=== PATIENT | female | born 1930 | race Caucasian/White ===

== ENCOUNTER 2017-03-12 01:32 | Observation (INO) ==
--- NOTE | 2017-03-12 01:40 | Emergency Department Note ---
Disposition Clinical Impression: Chest pain, Atrial fibrillation Disposition: Admitted As Inpatient Condition: Fair Time of Disposition: 04:07 ([facility] formerly [facility]) Chest Pain HPI - General Chief Complaint: ED Chest Pain Stated Complaint: afib Time Seen by Provider: 03/12/17 01:48 Source: patient Mode of arrival: ambulatory Limitations: no limitations Vital Signs Reviewed: Yes Nursing Notes Reviewed: Yes - History of Present Illness Pt complaint: chest pain, other (palpitations) Onset (ago): hour(s) Duration: constant Onset: during rest Pain Location: substernal Severity: moderate Severity scale (1-10): 4 Quality: tightness Pain Radiation: none Improves with: nothing Worsens with: exertion Context: other (last episode 4 years ago) Associated symptoms: Reports: diaphoresis, dyspnea, palpitations. Denies: nausea, vomiting, sense of impending doom, syncope, fever, cough, leg swelling Treatments prior to arrival chest pain: aspirin, nitroglycerin - Related Data Home Medications Medication Instructions Recorded Confirmed Aspirin 81 mg PO DAILY 04/13/15 11/08/15 Dronendrone [Multaq] 400 mg PO BID 04/13/15 03/12/17 Simvastatin [Zocor] 10 mg PO DAILY 04/13/15 03/12/17 Amlodipine [Norvasc] 2.5 mg PO DAILY 04/15/15 03/12/17 Magnesium Citrate [Citroma] 1 bottle PO DAILY PRN 04/15/15 04/15/15 Allergies Allergy/AdvReac Type Severity Reaction Status Date / Time chlorpheniramine Allergy Hives Verified 01/04/16 13:20 diphenhydramine AdvReac Itching Verified 01/04/16 13:20 Review of Systems: As Per HPI Constitutional: Reports: weakness. Denies: fever, chills Eyes: Denies: eye pain, eye discharge ENT ED: Denies: ear pain, throat pain, congestion, dysphagia Cardiovascular: Reports: chest pain, palpitations, dyspnea on exertion. Denies : orthopnea, edema, syncope, paroxysmal nocturnal dyspnea Respiratory: Reports: dyspnea. Denies: cough, wheezes Gastrointestinal: Denies: abdominal pain, nausea, vomiting Genitourinary: Denies: urgency, dysuria, frequency Musculoskeletal: Denies: back pain, neck pain Integumentary: Denies: rash, abrasion, lesions Neurological: Denies: headache, weakness Psychiatric: Denies: anxiety, depression Endocrine: Denies: fatigue Hematological/Lymphatic: Denies: easy bleeding, easy bruising Allergic/Immunologic: Denies: facial swelling Chest Pain PMH - Past Medical History Medical history: Reports: atrial fibrillation, cancer, hyperlipidemia, hypertension Surgical history: Reports: appendectomy, cancer surgery, cholecystectomy, hysterectomy Psychiatric history: Reports: no psych history FILE DRAWER FINISHER history: Reports: no FILE DRAWER FINISHER history - Social History Smoking Status: Never smoker Alcohol use: Reports: none Drug use: Reports: none Physical Exam - General Limitations: no limitations General appearance: alert, anxious, in distress - Head Head exam: atraumatic, normocephalic, normal inspection - Eye Eye exam: Present: normal appearance, PERRL, EOMI - ENT ENT exam: normal oropharynx, mucous membranes moist, TM's normal bilaterally, normal external ear exam - Neck Neck exam: Present: normal inspection, full ROM, trachea midline - Chest Chest inspection: Present: normal inspection, symmetric chest wall rise - Respiratory Respiratory exam: Present: normal lung sounds bilaterally - Cardiovascular Cardiovascular exam: Present: tachycardia, irregular rhythm, normal heart sounds - Abdominal Exam Abdominal exam: Present: soft, Non-Tender, normal bowel sounds. Absent: mass, pulsatile mass - Extremities Exam Extremities exam: Present: normal inspection, full ROM, normal capillary refill. Absent: tenderness, pedal edema, joint swelling, calf tenderness - Expanded Lower Extremity Exam Neurovascular/Tendon exam: Present: normal capillary refill, normal fine/light touch Gait: observed and normal - Back Exam Back exam: Present: normal inspection, full ROM. Absent: muscle spasm - Neurological Exam Neurological exam: Present: alert, oriented X3, CN II-XII intact, normal gait - Psychiatric Psychiatric exam: Present: normal affect, normal mood - Skin Skin exam: Present: warm, dry, intact, normal color Course Course Narrative: Patient was seen and examined patient was given 20 mg Cardizem jugular from 130s to 140s down to 70 she is in sinus arrhythmia still with this controlled atrial fibrillation distressed elderly patient be monitored overnight he has been 4 years since her last episode transferred to [facility] stable Vital Signs Temperature 97.4 F L 03/12/17 01:33 Pulse Rate 116 03/12/17 01:33 Respiratory Rate 19 03/12/17 01:33 Blood Pressure 134/87 03/12/17 01:33 O2 Sat by Pulse Oximetry 94 03/12/17 01:33 Temperature 97.4 F L 03/12/17 01:33 Pulse Rate 85 03/12/17 02:42 Respiratory Rate 13 03/12/17 03:46 Blood Pressure 99/64 03/12/17 03:46 O2 Sat by Pulse Oximetry 91 03/12/17 02:42 Oxygen Delivery Oxygen Delivery Room Air Chest Pain - MDM Narrative Medical decision making narrative: Atrial fib with RVR atrial flutter with controlled response atrial fib slowed response - Differential Diagnosis Likely: unstable angina pectoris, atypical chest pain, chest pain - Medical Records Medical records reviewed: Yes I reviewed the patient's medical records. - Lab Data Lab results reviewed: Yes I reviewed the patient's lab results. Result diagrams: 03/12/17 02:01 03/12/17 02:01 Lab Results 03/12/17 03/12/17 03/12/17 Range/Units 02:01 02:01 02:01 WBC 4.1 L (4.3-11.1) K/mcL RBC 4.24 (3.82-4.97) M/mcL Hgb 14.0 (11.5-15.4) g/dL Hct 40.3 (35.3-44.9) % MCV 95.0 (83.0-100.0) fL MCH 33.0 (28.0-33.3) pg MCHC 34.7 (31.6-35.5) g/dL RDW 12.8 (11.5-14.5) % Plt Count 192 (140-400) K/mcL MPV 9.3 L (9.4-12.4) fL Immature Gran % 0.2 (0-4) % Seg Neutrophils % 41.9 % Lymphocytes % 40.6 % Monocytes % 11.9 % Eosinophils % 4.4 % Basophils % 1.0 % Neutrophils # 1.7 (1.6-8.9) K/mcL Lymphocytes # 1.7 (0.6-4.6) K/mcL Monocytes # 0.5 (0.0-1.3) K/mcL Eosinophils # 0.2 (0.0-0.6) K/mcL Basophils # 0.0 (0.0-0.2) K/mcL PT 10.7 (9.4-12.1) Seconds INR 1.0 APTT 22.0 L (26.0-36.0) Seconds Sodium 141 (136-145) mEq/L Potassium 3.5 (3.5-4.5) mEq/L Chloride 107 (98-109) mEq/L Carbon Dioxide 21 (19-29) mEq/L BUN 22 H (7-20) mg/dL Creatinine 1.10 (0.57-1.11) mg/dL Est GFR ( Amer) 57 L (> 60) Est GFR (Non-Af Amer) 47 L (> 60) BUN/Creatinine Ratio 20 (6-26) Glucose 136 H (70-99) mg/dL Calculated Osmolality 297 (280-300) Calcium 9.1 (8.6-10.8) mg/dL Magnesium 2.4 (1.6-2.6) mg/dL Troponin I (0-0.03) ng/mL B-Natriuretic Peptide (0-100) pg/mL 03/12/17 03/12/17 Range/Units 02:01 02:01 WBC (4.3-11.1) K/mcL RBC (3.82-4.97) M/mcL Hgb (11.5-15.4) g/dL Hct (35.3-44.9) % MCV (83.0-100.0) fL MCH (28.0-33.3) pg MCHC (31.6-35.5) g/dL RDW (11.5-14.5) % Plt Count (140-400) K/mcL MPV (9.4-12.4) fL Immature Gran % (0-4) % Seg Neutrophils % % Lymphocytes % % Monocytes % % Eosinophils % % Basophils % % Neutrophils # (1.6-8.9) K/mcL Lymphocytes # (0.6-4.6) K/mcL Monocytes # (0.0-1.3) K/mcL Eosinophils # (0.0-0.6) K/mcL Basophils # (0.0-0.2) K/mcL PT (9.4-12.1) Seconds INR APTT (26.0-36.0) Seconds Sodium (136-145) mEq/L Potassium (3.5-4.5) mEq/L Chloride (98-109) mEq/L Carbon Dioxide (19-29) mEq/L BUN (7-20) mg/dL Creatinine (0.57-1.11) mg/dL Est GFR ( Amer) (> 60) Est GFR (Non-Af Amer) (> 60) BUN/Creatinine Ratio (6-26) Glucose (70-99) mg/dL Calculated Osmolality (280-300) Calcium (8.6-10.8) mg/dL Magnesium (1.6-2.6) mg/dL Troponin I 0.00 (0-0.03) ng/mL B-Natriuretic Peptide 245 H (0-100) pg/mL - Radiology Data Radiology results reviewed: Yes I reviewed the patient's radiology results. ITS Impressions Chest X-Ray 03/12/17 01:37 IMPRESSION: No acute cardiopulmonary disease. D/ / Reji Mcgee MD / Reji Mcgee MD Interpreting Provider: Reji Mcgee MD - EKG Data EKG attestation: Yes I reviewed and interpreted this EKG. EKG results narrative: H A. fib with RVR nonspecific T-wave changes rate 130 OK QRS 86 QT 318 axis XIV Heart Score - Score History: Moderately Suspicious EKG: Non Specific repolarisation Disturbance Age: Greater than 65 Risk Factors: Equal/Greater than 3 risk factor or history of atherosclerotic disease Troponin: Less than normal limit HEART Score Total: 6 Critical Care Time Critical Care Time: Yes Total Critical Care Time: 35 Attestation: Critical care performed: Atrial fib with RVR 35 minutes getting the rhythm under control getting her stabilized from the fast irregular rhythm to a controlled rhythm medication that there is not any underlying congestive heart failure hypertensive issues or any evidence of a myocardial infarction with the results have not been obtained admitted search Dr. Scott observation status patient agreeable Time is exclusive of separately billable procedures. Time includes: direct patient care, patient reassessment, coordination of patient care, interpretation of data (laboratory data, radiology data, and respiratory data), review of patient's medical records, medical consultation and documentation of patient care. Procedures included in critical care time: Procedures excluded from critical care time:
[2017-03-12] MEDS ORDERED: 0.9 % Sodium Chloride 1,000 ML IVC SCH ×3 (01:45→04:31)
[2017-03-12 02:07] LABS: Eosinophils # 0.2 K/mcL (0.0-0.6); Eosinophils % 4.4 %; Hematocrit 40.3 % (35.3-44.9); Immature Granulocytes % 0.2 % (0-4); Lymphocytes # 1.7 K/mcL (0.6-4.6); Lymphocytes % 40.6 %; Mean Corpuscular HGB Conc 34.7 g/dL (31.6-35.5); Mean Platelet Volume 9.3 fL (9.4-12.4); Monocytes # 0.5 K/mcL (0.0-1.3); Monocytes % 11.9 %; Neutrophils # 1.7 K/mcL (1.6-8.9); Platelet Count 192 K/mcL (140-400); Red Blood Count 4.24 M/mcL (3.82-4.97); Red Cell Distribution Width 12.8 % (11.5-14.5); Segmented Neutrophils % 41.9 %
[2017-03-12 02:15] LABS: Prothrombin Time 10.7 Seconds (9.4-12.1)
[2017-03-12 02:25] LABS: Calcium 9.1 mg/dL (8.6-10.8); Magnesium 2.4 mg/dL (1.6-2.6); Potassium 3.5 mEq/L (3.5-4.5)
[2017-03-12] MEDS ORDERED: *HR* Heparin 5,000 UNIT/ML VIAL IVP ONE (04:31)
[2017-03-12] MEDS ORDERED: Heparin 25,000 UNIT/500 ML D5W 25,000 UNIT/500 ML MLS IVC SCH (04:31)
[2017-03-12] MEDS ORDERED: Naloxone 0.4 MG/ML INJ IVP PRN (04:31)
[2017-03-12] MEDS ORDERED: *HR* Heparin 5,000 UNIT/ML VIAL IVP PRN ×2 (04:31)
[2017-03-12] MEDS ORDERED: Aspirin 81 MG TAB.CHEW PO SCH (09:00)
[2017-03-12] MEDS ORDERED: amLODIPine 5 MG TABLET PO SCH (09:00)
[2017-03-12] MEDS: Aspirin 81 MG TAB.CHEW PO SCH (09:52)
--- NOTE | 2017-03-12 10:47 | Internal Med History&Physical ---
Date of Encounter: 03/12/17 Time of Encounter: 10:15 Assessment and Plan (1) Atrial fibrillation Current visit: Yes Status: Acute She has now converted back to normal sinus rhythm. I will change her from low- dose amlodipine to low-dose Toprol to maintain NSR. Continue Multaq. I discussed with her about possible use of an OAC. She will discuss this further with her PCP and/or wash box operator. Qualifiers: Atrial fibrillation type: paroxysmal Qualified Code(s): I48.0 - Paroxysmal atrial fibrillation (2) Hypertension Current visit: No Status: Chronic We will change from amlodipine to Toprol as per above. Qualifiers: Hypertension type: essential hypertension Qualified Code(s): I10 - Essential (primary) hypertension Internal Medicine - H&P: HPI Chief complaint: AF with RVR Admitted From: Home Plans for Post Hospital Care: Home History of present illness: Ms. Adhikari is a 86 year old female who came to emergency room stating she had sensation of tachycardia onset approximately 11:30 PM while at leisure. She felt she likely had AF with RVR. She reports not feeling well over the previous 6 hours but did not check her pulse. She was evaluated in emergency room and found have AF with RVR with ventricular rate of 130/m. She was admitted to [facility] floor for ongoing care needs. She was diagnosed with AF originally 2005 but has been maintained in normal sinus rhythm on Rythmol. She has history of hypertension but denies [place] heart failure angina DVT or pulmonary embolus She thinks she had a stress test and heart cath approximately 1999 which were unremarkable. She feels back to her baseline now. She denies any chest pain last evening. Past Med Surg Social Fam HX - Past Medical History Medical history: atrial fibrillation, cancer, hyperlipidemia, hypertension Psychiatric history: no psych history - Past Surgical History Surgical History: appendectomy, cancer surgery, cholecystectomy, hysterectomy - Social History Smoking Status: Never smoker Smokeless Tobacco Status: No Alcohol use: none Drug use: none Internal Medicine - H&P: Meds Aspirin 81 mg PO DAILY 04/13/15 [History] Dronendrone [Multaq] 400 mg PO BID 04/13/15 [History] Simvastatin [Zocor] 10 mg PO DAILY 04/13/15 [History] Amlodipine [Norvasc] 2.5 mg PO DAILY 04/15/15 [History] Magnesium Citrate [Citroma] 1 bottle PO DAILY PRN 04/15/15 [History] 3 Allergy/AdvReac Type Severity Reaction Status Date / Time chlorpheniramine Allergy Hives Verified 01/04/16 13:20 diphenhydramine AdvReac Itching Verified 01/04/16 13:20 All Systems PM: A 10-system review of systems was performed and is negative for pertinent findings except as documented above in the HPI. Review of systems: Review of systems from her November 2015 [facility] hospitalization were reviewed and revised as below. Gen.: Her weight has been stable at approximately 60 kg since November 2015 hospitalization Cardiovascular: As per history of present illness Respiratory: She is a lifelong nonsmoker and has no known chronic lung disease GI: She has had cholecystectomy but denies disorders of her liver or exocrine pancreas. She had diverticulitis with hospitalizations in 2014 and 2015. She claims colonoscopy 2015 showed no significant abnormalities. : No history of hematuria dysuria or kidney stones. 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 She has hyperlipidemia but no known thyroid disease. Hematology/oncology: No history of blood disorders or anemia. She had right breast CA diagnosed 2009 with lumpectomy followed by XRT. She declined Arimidex. 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 Psychiatric: She denies anxiety depression or other mental health issues Musk skeletal: She denies arthritis gout or osteoporosis. - Constitutional Vitals: Temp Pulse Resp BP Pulse Ox 98.4 F 61 18 116/52 94 03/12/17 10:30 03/12/17 10:30 03/12/17 10:30 03/12/17 10:30 03/12/17 10:30 Exam: Gen.: She is a well-developed well-nourished female who appears in no acute distress at present time. HEENT: Head is atraumatic and normocephalic. Eyes: EOMI. There is no scleral icterus. Her gaze appears slightly disconjugate. Mouth: Mucosa is moist Neck: Supple and nontender. There is no thyromegaly or adenopathy noted. Heart: Regular without murmurs gallops or ectopics Lungs: No wheezes or crackles are heard. Abdomen: Soft and nontender. No masses or guarding are noted. Extremities: There is no cyanosis edema or clubbing noted. Dorsalis pedis and posterior tibial pulses are trace to 1+ palpable bilaterally. Neurologic: Mental status: She is talkative and a good historian. Cranial nerves: Smile is symmetric. Forehead wrinkles bilaterally. Tongue protrudes midline. EOMI. Motor: There is no pronator drift. Cerebellar: Fair to nose intact bilaterally. Skin: Warm and dry Internal Med - H&P Results - Labs CBC & Chem 7: 03/12/17 02:01 03/12/17 02:01 Labs: Cardiac Enzymes 03/12/17 Range/Units 07:27 Troponin I 0.04 H* (0-0.03) ng/mL
[2017-03-12] MEDS: Metoprolol XL (24 HR) Succ 25 MG TAB.ER.24H PO SCH (16:10)
[2017-03-13 06:27] VITALS: BP 108/61
[2017-03-13] MEDS: Aspirin 81 MG TAB.CHEW PO SCH (07:29)
[2017-03-13] MEDS: Metoprolol XL (24 HR) Succ 25 MG TAB.ER.24H PO SCH (07:30)
--- NOTE | 2017-03-13 08:37 | Discharge Summary ---
Date of Encounter: 03/13/17 Time of Encounter: 08:30 - Discharge Diagnosis (1) Atrial fibrillation Priority: Primary Status: Acute Qualifiers: Atrial fibrillation type: paroxysmal Qualified Code(s): I48.0 - Paroxysmal atrial fibrillation (2) Hypertension Priority: Secondary Status: Chronic Qualifiers: Hypertension type: essential hypertension Qualified Code(s): I10 - Essential (primary) hypertension - Discharge Medications Prescriptions: Metoprolol Succinate 12.5 mg PO DAILY #15 tab.er.24h Home Medications: Aspirin 81 mg PO DAILY 04/13/15 [History] Dronendrone [Multaq] 400 mg PO BID 04/13/15 [History] Simvastatin [Zocor] 10 mg PO DAILY 04/13/15 [History] Magnesium Citrate [Citroma] 1 bottle PO DAILY PRN 04/15/15 [History] Metoprolol Succinate 12.5 mg PO DAILY #15 tab.er.24h 03/13/17 [Rx] Allergies/Adverse Reactions: 3 Allergy/AdvReac Type Severity Reaction Status Date / Time chlorpheniramine Allergy Hives Verified 01/04/16 13:20 diphenhydramine AdvReac Itching Verified 01/04/16 13:20 Date of admission: 03/12/17 04:00 Primary care physician: Daren Cox DO - Patient Status Disposition: Home, Self-Care Condition: Fair Functional capacity at discharge: independent ambulation Overall status at discharge: patient is progressing back to baseline - Discharge Instructions Follow Up With: Daren Cox DO [Primary Care Provider] - Maldonado Nascimento MD [Partnered Physician] - 1 week - Diet and Activity Activity: resume usual activities as tolerated Diet: advance to your usual diet Hospital course: Ms. Adhikari is a 86 year old female who came to emergency room stating she had sensation of tachycardia onset approximately 11:30 PM while at leisure. She felt she likely had AF with RVR. She reports not feeling well over the previous 6 hours but did not check her pulse. She was evaluated in emergency room and found have AF with RVR with ventricular rate of 130/m. She was admitted to [facility] for ongoing care needs. Initial orders were written by the emergency room physician. I saw her on March 12 and performed the history and physical. She converted normal sinus rhythm by the time I saw her. I discontinued amlodipine and placed her on metoprolol XL to maintain NSR. Her other home medications remained unchanged. 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 There were no new problems and on March 13 she was stable for discharge home. She will follow with her PCP Dr. Daren Cox within 1 week. - Time Spent with Patient Total time spent providing and/or coordinating discharge services: - Constitutional Vitals: Temp Pulse Resp BP Pulse Ox 97.3 F L 70 18 108/61 95 03/13/17 06:24 03/13/17 06:24 03/13/17 06:24 03/13/17 06:24 03/13/17 06:24
--- NOTE | 2017-03-14 16:33 | Electrocardiograph Report ---
[address] [address] Test Date: 2017-03-12 Pat Name: Rama Adhikari Department: [id number] Room: [facility] Gender: F Decator Operator: Олег : 1930 Requested By: Dorita Hernandez Order Number: [id number] Reading MD: Jannie Cutler Measurements Intervals Dewitt Rate: 130 P: NM: 0 QRS: 14 QRSD: 86 T: 26 QT: 318 QTc: 395 Interpretive Statements ATRIAL FIBRILLATION WITH RAPID VENTRICULAR RESPONSE MODERATE ST DEPRESSION [0.05+ mV ST DEPRESSION] Electronically Signed On 03-14-2017 16:31:20 EDT by Jannie Cutler
== END 2017-03-13 08:48 | disposition home or self-care (01) ==
LOC: INPPIK 01:32 → EMEROOPIK 01:32 → INPPIK 04:04
PROVIDERS: ADMIT Internal Medicine; ATTEND Internal Medicine

== ENCOUNTER 2017-05-14 22:27 | Observation (INO) ==
--- NOTE | 2017-05-14 22:42 | Emergency Department Note ---
Disposition Clinical Impression: Paroxysmal atrial fibrillation Disposition: Admitted As Inpatient Condition: Good Referrals: Daren Cox DO [Primary Care Provider] - Forms: ED Satisfaction Letter Time of Disposition: 23:56 Arrhythmia/Palpitations HPI - General Chief Complaint: ED Arrhythmia/Palpitations Stated Complaint: palpations elevated heart rate Time Seen by Provider: 05/14/17 22:35 Source: patient Mode of arrival: ambulatory Limitations: no limitations Nursing Notes Reviewed: Yes Vital Signs Reviewed: Yes - History of Present Illness HPI Narrative: 86-year-old white female with a history of paroxysmal atrial fibrillation presents with palpitations that she noted around 6 PM this evening. She states her usually triggered by stress or exercise. She states she was stressed today because she had trouble sleeping last night because of leg cramps and was up most of the night. She believes this is what triggered it. No chest pain. No shortness of breath. Pt Subjective Complaint: palpitations Onset (ago): hour(s) (5-/) Time: 18:00 Duration: constant Severity: moderate Context: occurred during rest Arrhythmia History: atrial fibrillation Associated symptoms: Reports: denies other symptoms - Related Data Home Medications Medication Instructions Recorded Confirmed Aspirin 81 mg PO DAILY 04/13/15 05/14/17 Dronendrone [Multaq] 400 mg PO BID 04/13/15 05/14/17 Simvastatin [Zocor] 10 mg PO DAILY 04/13/15 05/14/17 Cholecalciferol (D-3) [Vitamin D] 1,000 unit PO DAILY 05/14/17 05/14/17 Magnesium Citrate [Citroma] 296 ml PO PRN PRN 05/14/17 05/14/17 Previous Rx's Medication Instructions Recorded Metoprolol Succinate 12.5 mg PO DAILY #15 tab.er.24h 03/13/17 Allergies Allergy/AdvReac Type Severity Reaction Status Date / Time chlorpheniramine Allergy Hives Verified 01/04/16 13:20 diphenhydramine AdvReac Itching Verified 01/04/16 13:20 All systems ED: reviewed and negative except as stated. Constitutional: Denies: fever, chills ENT ED: Denies: ear pain, throat pain Cardiovascular: Reports: palpitations. 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 Absent: scleral icterus, conjunctival injection - ENT ENT exam: normal oropharynx, mucous membranes moist - Neck Neck exam: Present: normal inspection, full ROM, trachea midline. Absent: tenderness, lymphadenopathy - Respiratory Respiratory exam: Present: normal lung sounds bilaterally. Absent: respiratory distress, wheezes - Cardiovascular Cardiovascular exam: Present: tachycardia, irregular rhythm. Absent: systolic murmur, diastolic murmur, gallop - Abdominal Exam Abdominal exam: Present: soft, Non-Tender, normal bowel sounds. Absent: organomegaly, mass - Extremities Exam Extremities exam: Present: normal inspection, full ROM, normal capillary refill. Absent: tenderness, pedal edema - Neurological Exam Neurological exam: Present: alert, oriented X3. Absent: motor sensory deficit - Psychiatric Psychiatric exam: Present: normal affect, normal mood - Skin Skin exam: Present: warm, dry, intact, normal color. Absent: cyanosis, diaphoresis Course - Reevaluation(s) Reevaluation #1: Her heart rate is in the 80s, but she still in atrial fibrillation. I discussed observation admission for further treatment. She is agreeable. I discussed the case with Dr. Scott. He is agreeable with admission. Time: 23:55 Vital Signs Temperature 97.3 F L 05/14/17 22:32 Pulse Rate 101 05/14/17 22:32 Respiratory Rate 18 05/14/17 22:32 Blood Pressure 155/78 05/14/17 22:32 O2 Sat by Pulse Oximetry 93 05/14/17 22:32 Temperature 97.3 F L 05/14/17 22:32 Pulse Rate 69 05/15/17 00:01 Respiratory Rate 18 05/15/17 00:01 Blood Pressure 107/64 05/15/17 00:01 O2 Sat by Pulse Oximetry 98 05/15/17 00:01 Oxygen Delivery Oxygen Delivery Nasal Cannula Arrhythmia/Palpitations - Differential Diagnosis Differential Diagnosis: Likely: palpitations, anxiety, sinus tachycardia, artial arrhythmia, supraventricular tachycardia, metabolic/electrolyte disturbance - Lab Data Lab results reviewed: Yes I reviewed the patient's lab results. Result diagrams: 05/14/17 22:47 05/14/17 22:47 Lab Results 05/14/17 05/14/17 05/14/17 Range/Units 22:47 22:47 22:47 WBC 5.2 (4.3-11.1) K/mcL RBC 4.34 (3.82-4.97) M/mcL Hgb 14.4 (11.5-15.4) g/dL Hct 41.5 (35.3-44.9) % MCV 95.6 (83.0-100.0) fL MCH 33.2 (28.0-33.3) pg MCHC 34.7 (31.6-35.5) g/dL RDW 12.8 (11.5-14.5) % Plt Count 216 (140-400) K/mcL MPV 9.2 L (9.4-12.4) fL Immature Gran % 0.4 (0-4) % Seg Neutrophils % 52.7 % Lymphocytes % 32.8 % Monocytes % 9.9 % Eosinophils % 3.2 % Basophils % 1.0 % Neutrophils # 2.8 (1.6-8.9) K/mcL Lymphocytes # 1.7 (0.6-4.6) K/mcL Monocytes # 0.5 (0.0-1.3) K/mcL Eosinophils # 0.2 (0.0-0.6) K/mcL Basophils # 0.1 (0.0-0.2) K/mcL Sodium 140 (136-145) mEq/L Potassium 4.1 (3.5-4.5) mEq/L Chloride 110 H (98-109) mEq/L Carbon Dioxide 18 L (19-29) mEq/L BUN 20 (7-20) mg/dL Creatinine 1.17 H (0.57-1.11) mg/dL Est GFR ( Amer) 53 L (> 60) Est GFR (Non-Af Amer) 44 L (> 60) BUN/Creatinine Ratio 17 (6-26) Glucose 115 H (70-99) mg/dL Calculated Osmolality 294 (280-300) Calcium 9.4 (8.6-10.8) mg/dL Troponin I 0.00 (0-0.03) ng/mL B-Natriuretic Peptide (0-100) pg/mL 05/14/17 Range/Units 22:47 WBC (4.3-11.1) K/mcL RBC (3.82-4.97) M/mcL Hgb (11.5-15.4) g/dL Hct (35.3-44.9) % MCV (83.0-100.0) fL MCH (28.0-33.3) pg MCHC (31.6-35.5) g/dL RDW (11.5-14.5) % Plt Count (140-400) K/mcL MPV (9.4-12.4) fL Immature Gran % (0-4) % Seg Neutrophils % % Lymphocytes % % Monocytes % % Eosinophils % % Basophils % % Neutrophils # (1.6-8.9) K/mcL Lymphocytes # (0.6-4.6) K/mcL Monocytes # (0.0-1.3) K/mcL Eosinophils # (0.0-0.6) K/mcL Basophils # (0.0-0.2) K/mcL Sodium (136-145) mEq/L Potassium (3.5-4.5) mEq/L Chloride (98-109) mEq/L Carbon Dioxide (19-29) mEq/L BUN (7-20) mg/dL Creatinine (0.57-1.11) mg/dL Est GFR ( Amer) (> 60) Est GFR (Non-Af Amer) (> 60) BUN/Creatinine Ratio (6-26) Glucose (70-99) mg/dL Calculated Osmolality (280-300) Calcium (8.6-10.8) mg/dL Troponin I (0-0.03) ng/mL B-Natriuretic Peptide 196 H (0-100) pg/mL - Radiology Data Radiology results reviewed: Yes I reviewed the patient's radiology results. Impressions Chest X-Ray 05/14/17 22:39 IMPRESSION: Stable portable study. D/ / Roxanne Hernandez Cha, MD / Roxanne Hernandez Cha, MD Interpreting Provider: Roxanne Hernandez Cha, MD - EKG Data EKG attestation: Yes I reviewed and interpreted this EKG. EKG results narrative: Atrial fibrillation, rate of 108, nonspecific ST T changes. Rhythm strip shows atrial fibrillation with rate 108, QRS of 85 ms with no other ectopy as interpreted by me.
[2017-05-14 22:58] LABS: Eosinophils % 3.2 %; Hematocrit 41.5 % (35.3-44.9); Hemoglobin 14.4 g/dL (11.5-15.4); Immature Granulocytes % 0.4 % (0-4); Lymphocytes # 1.7 K/mcL (0.6-4.6); Lymphocytes % 32.8 %; Mean Corpuscular HGB Conc 34.7 g/dL (31.6-35.5); Mean Corpuscular Hemoglobin 33.2 pg (28.0-33.3); Mean Corpuscular Volume 95.6 fL (83.0-100.0); Mean Platelet Volume 9.2 fL (9.4-12.4); Monocytes # 0.5 K/mcL (0.0-1.3); Monocytes % 9.9 %; Neutrophils # 2.8 K/mcL (1.6-8.9); Platelet Count 216 K/mcL (140-400); Red Blood Count 4.34 M/mcL (3.82-4.97); Red Cell Distribution Width 12.8 % (11.5-14.5); Segmented Neutrophils % 52.7 %
[2017-05-14 22:59] LABS: Basophils # 0.1 K/mcL (0.0-0.2); Eosinophils # 0.2 K/mcL (0.0-0.6)
[2017-05-14 23:15] LABS: Calcium 9.4 mg/dL (8.6-10.8); Potassium 4.1 mEq/L (3.5-4.5)
[2017-05-14] MEDS ORDERED: *HR* Digoxin 0.5 MG/2 ML AMPUL IVP ONE (23:57)
[2017-05-15] MEDS ORDERED: Naloxone 0.4 MG/ML INJ IVP PRN (01:46)
[2017-05-15] MEDS ORDERED: *HR* Enoxaparin 30 MG/0.3 ML SYRINGE SQ SCH (06:00)
[2017-05-15] MEDS ORDERED: *HR* Enoxaparin 100 MG/ML SYRINGE SQ SCH (06:45)
[2017-05-15] MEDS: *HR* Enoxaparin 100 MG/ML SYRINGE SQ SCH (06:53)
[2017-05-15] MEDS ORDERED: Metoprolol XL (24 HR) Succ 25 MG TAB.ER.24H PO SCH (09:00)
[2017-05-15] MEDS: Cholecalciferol (D-3) 1,000 UNIT TABLET PO SCH (09:15)
[2017-05-15] MEDS: Aspirin 81 MG TAB.CHEW PO SCH (09:15)
--- NOTE | 2017-05-15 14:39 | Internal Med History&Physical ---
Date of Encounter: 05/15/17 Time of Encounter: 14:15 Assessment and Plan (1) Paroxysmal atrial fibrillation Current visit: Yes Status: Acute She has now converted back to normal sinus rhythm. Cardizem drip has been discontinued earlier today. Will increase Toprol-XL to 25 mg daily. (2) CKD (chronic kidney disease) stage 3, GFR 30-59 ml/min Current visit: No Status: Chronic We will monitor renal indices as needed. Internal Medicine - H&P: HPI Chief complaint: Atrial fibrillation Admitted From: Emergency Dept Plans for Post Hospital Care: Home History of present illness: Ms. Adhikari is a 86 year old female who came to the emergency room stating she had found her pulse to be rapid and irregular. She reports she had not felt well previous 24 hours and had been awake most of the previous night with leg cramps. She was evaluated in emergency room and found to have AF with RVR. She was started on Cardizem drip and given a dose of Lanoxin. She was admitted to [facility] floor for ongoing care needs. She was hospitalized at [facility] March 2017 with AF with RVR. She converted to normal sinus rhythm within a few hours of initiating treatment. She was discharged on Toprol to maintain NSR. Multaq around was continued. She discussed OAC with her disposal worker at a follow-up office visit and she decided to continue only with aspirin. She was diagnosed with AF originally 2005 but has generally been maintained in normal sinus rhythm on Rythmol. She has history of hypertension but denies [place] heart failure angina DVT or pulmonary embolus She thinks she had a stress test and heart cath in the 1980s which were unremarkable. She feels back to her baseline now. She denies any chest pain or dyspnea last evening. Past Med Surg Social Fam HX - Past Medical History Medical history: atrial fibrillation, cancer, hyperlipidemia, hypertension Psychiatric history: no psych history - Past Surgical History Surgical History: appendectomy, cancer surgery, cholecystectomy, hysterectomy - Social History Smoking Status: Never smoker Smokeless Tobacco Status: No Alcohol use: none Drug use: none Internal Medicine - H&P: Meds Aspirin 81 mg PO DAILY 04/13/15 [History] Dronendrone [Multaq] 400 mg PO BID 04/13/15 [History] Simvastatin [Zocor] 10 mg PO DAILY 04/13/15 [History] Metoprolol Succinate 12.5 mg PO DAILY #15 tab.er.24h 03/13/17 [Rx] Cholecalciferol (D-3) [Vitamin D] 1,000 unit PO DAILY 05/14/17 [History] Magnesium Citrate [Citroma] 296 ml PO PRN PRN 05/14/17 [History] 3 Allergy/AdvReac Type Severity Reaction Status Date / Time chlorpheniramine Allergy Hives Verified 01/04/16 13:20 diphenhydramine AdvReac Itching Verified 01/04/16 13:20 All Systems PM: A 10-system review of systems was performed and is negative for pertinent findings except as documented above in the HPI. Review of systems: Review of systems from her March 2016 [facility] hospitalization were reviewed and revised as below. Gen.: Her weight has decreased from 60.490 kg on 03/12/2017 to 57.805 kg now Cardiovascular: As per history of present illness Respiratory: She is a lifelong nonsmoker and has no known chronic lung disease GI: She has had cholecystectomy but denies disorders of her liver or exocrine pancreas. She had diverticulitis with hospitalizations in 2014 and 2015. She claims colonoscopy 2015 showed no significant abnormalities. : No history of hematuria dysuria or kidney stones. She does have CKD3 but does not follow with a certified control systems technician Neurologic: She denies large distribution strokes or seizures. 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 Hemoglobin A1c was 5.7% on 02/16/2016. She has hyperlipidemia but no known thyroid disease. Hematology/oncology: No history of blood disorders or anemia. She had right breast CA diagnosed 2009 with lumpectomy followed by XRT. She declined Arimidex. 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 Psychiatric: She denies anxiety depression or other mental health issues Musk skeletal: She denies arthritis gout or osteoporosis. - Constitutional Vitals: Temp Pulse Resp BP Pulse Ox 97.5 F L 56 16 99/49 93 05/15/17 10:49 05/15/17 10:49 05/15/17 10:49 05/15/17 10:49 05/15/17 10:49 Exam: General: She is a well developed nourished female sitting comfortably on the side of the bed who appears in no acute distress HEENT: Head is atraumatic and normocephalic. Eyes: EOMI. There is no scleral icterus. Mouth: Mucosa is moist. Neck: Supple and nontender. There is no thyromegaly or adenopathy noted. Heart: Regular without murmurs gallops or ectopics Lungs: No wheezes or crackles are heard. Abdomen: Soft and nontender. No masses or guarding are noted. Extremities: There is no cyanosis edema, or clubbing noted. Dorsalis pedis and posterior tibial pulses are trace to 1+ palpable bilaterally. Neurologic: Mental status: She is talkative and a good historian. Cranial nerves: Smile is symmetric. Forehead wrinkles bilaterally. Tongue protrudes midline. EOMI. Motor: There is no pronator drift. Cerebellar: Finger to nose is intact bilaterally. Skin: Warm and dry Internal Med - H&P Results - Labs CBC & Chem 7: 05/14/17 22:47 05/14/17 22:47
[2017-05-15] MEDS: Metoprolol XL (24 HR) Succ 25 MG TAB.ER.24H PO SCH (15:15)
--- NOTE | 2017-05-15 15:49 | Electrocardiograph Report ---
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
[2017-05-16 01:33] VITALS: BP 130/66
[2017-05-16 06:15] LABS: Alanine Aminotransferase 19 Units/L (0-55); Albumin 3.4 g/dL (3.5-5.0); Albumin/Globulin Ratio 1.2 (1.1-2.2); Alkaline Phosphatase 63 Units/L (38-126); Aspartate Amino Transferase 17 Units/L (5-34); BUN/Creatinine Ratio 20 (6-26); Bilirubin,Total 0.6 mg/dL (0.2-1.2); Blood Urea Nitrogen 21 mg/dL (7-20); Calcium 8.9 mg/dL (8.6-10.8); Carbon Dioxide 21 mEq/L (19-29); Chloride 110 mEq/L (98-109); Globulin 2.9 g/dL (2.4-3.5); Glucose 116 mg/dL (70-99); Magnesium 2.4 mg/dL (1.6-2.6); Osmolality,Calculated 298 (280-300); Potassium 4.3 mEq/L (3.5-4.5); Sodium 142 mEq/L (136-145); Total Protein 6.3 g/dL (6.0-8.3); eGFR For African Americans > 60 (> 60); eGFR For Non-African Americans 50 (> 60)
[2017-05-16] MEDS: *HR* Enoxaparin 100 MG/ML SYRINGE SQ SCH (06:52)
[2017-05-16] MEDS: Cholecalciferol (D-3) 1,000 UNIT TABLET PO SCH (08:18)
[2017-05-16] MEDS: Metoprolol XL (24 HR) Succ 25 MG TAB.ER.24H PO SCH (08:18)
[2017-05-16] MEDS: Aspirin 81 MG TAB.CHEW PO SCH (08:18)
--- NOTE | 2017-05-16 10:21 | Discharge Summary ---
Date of Encounter: 05/16/17 Time of Encounter: 10:10 - Discharge Diagnosis (1) Paroxysmal atrial fibrillation Priority: Primary Status: Acute (2) CKD (chronic kidney disease) stage 3, GFR 30-59 ml/min Priority: Secondary Status: Chronic - Discharge Medications Prescriptions: Metoprolol XL (24 HR) Succ [Toprol Xl] 25 mg PO DAILY #30 tab.er.24h Home Medications: Aspirin 81 mg PO DAILY 04/13/15 [History] Dronendrone [Multaq] 400 mg PO BID 04/13/15 [History] Simvastatin [Zocor] 10 mg PO DAILY 04/13/15 [History] Cholecalciferol (D-3) [Vitamin D] 1,000 unit PO DAILY 05/14/17 [History] Magnesium Citrate [Citroma] 296 ml PO PRN PRN 05/14/17 [History] Metoprolol XL (24 HR) Succ [Toprol Xl] 25 mg PO DAILY #30 tab.er.24h 05/16/17 [ Rx] Allergies/Adverse Reactions: 3 Allergy/AdvReac Type Severity Reaction Status Date / Time chlorpheniramine Allergy Hives Verified 01/04/16 13:20 diphenhydramine AdvReac Itching Verified 01/04/16 13:20 Date of admission: 05/15/17 00:20 Primary care physician: Daren Cox DO - Patient Status Disposition: Home, Self-Care Condition: Good Functional capacity at discharge: independent ambulation Overall status at discharge: patient is progressing back to baseline - Discharge Instructions Follow Up With: Daren Cox DO [Primary Care Provider] - 1 week - Diet and Activity Activity: resume usual activities as tolerated Diet: advance to your usual diet Hospital course: Ms. Adhikari is a 86 year old female who came to the emergency room stating she had found her pulse to be rapid and irregular. She reports she had not felt well previous 24 hours and had been awake most of the previous night with leg cramps. She was evaluated in emergency room and found to have AF with RVR. She was started on Cardizem drip and given a dose of Lanoxin. She was admitted [facility] for ongoing care needs. Initial orders were written by the emergency room physician. I saw her on May 15 and performed a history and physical. By the time I saw her she had converted back to normal sinus rhythm. Cardizem drip had been started in emergency room but was discontinued. I increase Toprol XL 25 mg daily. She remained in sinus rhythm the remainder of hospitalization. When I saw her on May 16 she felt stable for discharge home. She will follow with her PCP Dr. Cox within 1 week. Renal function improved slightly during hospitalization with creatinine decreasing to 1.04 and estimated GFR rising to 50. - Time Spent with Patient Total time spent providing and/or coordinating discharge services: - Constitutional Vitals: Temp Pulse Resp BP Pulse Ox 98.3 F 62 16 130/66 93 05/16/17 00:05 05/16/17 00:05 05/16/17 00:05 05/16/17 00:05 05/16/17 00:05
== END 2017-05-16 11:30 | disposition home or self-care (01) ==
LOC: EMEROOPIK 22:27 → INPPIK 22:27
PROVIDERS: ADMIT Internal Medicine; ATTEND Internal Medicine

== ENCOUNTER 2018-11-29 11:23 | Observation (INO) ==
--- NOTE | 2018-11-29 11:43 | Emergency Department Note ---
Disposition Clinical Impression: Vertigo Disposition: Admitted As Inpatient Condition: Good Time of Disposition: 14:10 Syncope HPI - General Chief Complaint: ED Dizziness Stated Complaint: dizziness and nausea Time Seen by Provider: 11/29/18 11:35 Source: patient, EMS Mode of arrival: EMS Limitations: no limitations Nursing Notes Reviewed: Yes - History of Present Illness HPI Narrative: 88-year-old female presents to the emergency room by EMS with vertiginous type symptoms started this morning. She denies any chest pain chest pressure palpitations she denies any cough cold or flulike symptoms read patient states that when she tried to get up out of bed she said the room was spinning horribly she had laid back in bed she has to keep her eyes closed. She denies any head trauma. She states she had similar type presentation decades ago and at that time had labyrinthitis. She denies any neck pain neck stiffness rash or lesions. She denies any focal weakness. She states that when she tries to sit up or open her eyes everything is spinning. She denies diarrhea melena hematochezia hematemesis cough cold or flulike symptoms all systems reviewed and are otherwise negative Pt Subjective Complaint: other Onset (ago): hour(s) Duration: other (When eyes are open still persistent) Description of Event: other (Room spinning) Prodromal Symptoms: vertigo Context: getting out of bed, standing up Current Symptoms: lightheaded, vertigo History: none Treatments prior to arrival: none Associated trauma secondary to event: No - Related Data Home Medications Medication Instructions Recorded Confirmed Aspirin 81 mg PO DAILY 04/13/15 11/29/18 Dronendrone [Multaq] 400 mg PO BID 04/13/15 11/29/18 Simvastatin [Zocor] 10 mg PO DAILY 04/13/15 11/29/18 Cholecalciferol (D-3) [Vitamin D] 1,000 unit PO DAILY 05/14/17 11/29/18 Previous Rx's Medication Instructions Recorded Metoprolol XL (24 HR) Succ [Toprol 25 mg PO DAILY #30 tab.er.24h 05/16/17 Xl] Docusate [Colace] 100 mg PO BID capsule 06/07/18 Allergies Allergy/AdvReac Type Severity Reaction Status Date / Time chlorpheniramine Allergy Hives Verified 01/04/16 13:20 diphenhydramine AdvReac Itching Verified 05/22/18 15:58 All systems ED: reviewed and negative except as stated. Review of Systems: As Per HPI Constitutional: Denies: fever, weakness Eyes: Denies: eye pain, eye discharge ENT ED: Denies: ear pain, throat pain, congestion Cardiovascular: Denies: chest pain, palpitations Respiratory: Denies: cough, dyspnea Gastrointestinal: Reports: nausea. Denies: abdominal pain, vomiting Genitourinary: Denies: urgency, dysuria, frequency Musculoskeletal: Denies: back pain, neck pain Integumentary: Denies: rash, abrasion Neurological: Reports: vertigo. Denies: headache, weakness Psychiatric: Denies: anxiety, depression Endocrine: Denies: fatigue Hematological/Lymphatic: Denies: easy bleeding Allergic/Immunologic: Denies: facial swelling Past Medical History - Past Medical History Attestation: Yes The following information was validated with the patient. Source: patient, old records reviewed, nursing notes reviewed Medical history: Reports: atrial fibrillation, cancer, hyperlipidemia, hypertension, renal disease, other Surgical history: Reports: appendectomy, cancer surgery, cholecystectomy, hysterectomy Psychiatric history: Reports: no psych history DEVELOPMENT CHEMIST history: Reports: no DEVELOPMENT CHEMIST history - Social History Smoking Status: Never smoker Smokeless Tobacco Status: No Alcohol use: Reports: none Drug use: Reports: none Physical Exam - General Limitations: no limitations General appearance: alert, in no apparent distress, anxious - Head Head exam: atraumatic, normocephalic, normal inspection - Eye Eye exam: Present: normal appearance, PERRL, EOMI - ENT ENT exam: normal exam, normal oropharynx, mucous membranes moist - Expanded ENT Exam External ear exam: Present: normal external inspection Mouth exam: Present: normal external inspection Teeth exam: Present: normal inspection Throat exam: Present: normal inspection - Neck Neck exam: Present: normal inspection, full ROM, trachea midline - Chest Chest inspection: Present: normal inspection, symmetric chest wall rise - Respiratory Respiratory exam: Present: normal lung sounds bilaterally - Cardiovascular Cardiovascular exam: Present: regular rate, normal rhythm, normal heart sounds - Abdominal Exam Abdominal exam: Present: soft, Non-Tender, normal bowel sounds. Absent: tende rness, distention, guarding, rebound, rigidity, mass, pulsatile mass - Extremities Exam Extremities exam: Present: normal inspection, full ROM. Absent: tenderness, pedal edema - Expanded Upper Extremity Exam Shoulder exam: Present: normal inspection, full ROM Arm exam: Present: normal inspection, full ROM Elbow exam: Present: normal inspection, full ROM Forearm/Wrist exam: Present: normal inspection, full ROM Hand exam: Present: normal inspection, full ROM Neurosensory exam: Normal: radial nerve, ulnar nerve Vascular exam: Normal: capillary refill, radial pulse - Expanded Lower Extremity Exam Hip/Pelvis exam: Present: normal inspection, full ROM Upper leg exam: Present: normal inspection, full ROM Knee exam: Present: normal inspection, full ROM Lower leg exam: Present: normal inspection, full ROM Ankle exam: Present: normal inspection, full ROM Foot/toe exam: Present: normal inspection, full ROM Neurovascular/Tendon exam: Present: normal capillary refill, normal fine/light touch. Absent: motor deficit, sensory deficit, tendon deficit Gait: observed and normal - Back Exam Back exam: Present: normal inspection, full ROM. Absent: tenderness - Neurological Exam Neurological exam: Present: alert, oriented X3 - Expanded Neurological Exam Patient oriented to: Present: person, place, time Coma Scale Eye Opening: Spontaneous Coma Scale Motor Response: Obeys Commands Coma Scale Verbal Response: Oriented Coma Scale Total: 15 - Psychiatric Psychiatric exam: Present: normal affect, normal mood - Skin Skin exam: Present: warm, dry, intact, normal color Course Course Narrative: Patient was seen and examined patient was given meclizine she said this improved her symptoms of about 25% this is while we were waiting results of the CAT scan and laboratory data was results having been obtained showing no evidence of an acute stroke intercranial mass or lesion she was then given 2.5 mg of Valium and Zofran this improved her about another 20% she still having when she changes from laying down and sitting up pretty significant symptoms but she is able now to sit with her eyes open without any difficulty as result patient be admitted for observation transferred to [facility] Vital Signs Temperature 98.7 F 11/29/18 11:24 Pulse Rate 63 11/29/18 11:24 Respiratory Rate 18 11/29/18 11:24 Blood Pressure 149/122 11/29/18 11:24 O2 Sat by Pulse Oximetry 96 11/29/18 11:24 Temperature 98.2 F 11/29/18 23:15 Pulse Rate 72 11/29/18 23:15 Respiratory Rate 16 11/29/18 23:15 Blood Pressure 123/80 11/29/18 23:15 O2 Sat by Pulse Oximetry 91 11/29/18 23:15 Oxygen Delivery Oxygen Delivery Room Air Syncope - MDM Narrative Medical decision making narrative: Vertigo - Differential Diagnosis Likely: syncope due to orthostatic hypotension - Medical Records Medical records reviewed: Yes I reviewed the patient's medical records. - Lab Data Lab results reviewed: Yes I reviewed the patient's lab results. Result diagrams: 11/29/18 14:50 11/29/18 12:08 Lab Results 11/29/18 11/29/18 11/29/18 Range/Units 11:30 12:08 12:08 WBC 3.5 L (4.3-11.1) K/mcL RBC 4.05 (3.82-4.97) M/mcL Hgb 13.4 (11.5-15.4) g/dL Hct 38.7 (35.3-44.9) % MCV 95.6 (83.0-100.0) fL MCH 33.1 (28.0-33.3) pg MCHC 34.6 (31.6-35.5) g/dL RDW 13.2 (11.5-14.5) % Plt Count 186 (140-400) K/mcL MPV 8.7 L (9.4-12.4) fL Immature Gran % 1.1 (0-4) % Seg Neutrophils % 63.9 % Lymphocytes % 26.4 % Monocytes % 6.3 % Eosinophils % 1.4 % Basophils % 0.9 % Neutrophils # 2.2 (1.6-8.9) K/mcL Lymphocytes # 0.9 (0.6-4.6) K/mcL Monocytes # 0.2 (0.0-1.3) K/mcL Eosinophils # 0.1 (0.0-0.6) K/mcL Basophils # 0.0 (0.0-0.2) K/mcL PT 12.7 H (9.4-12.1) Seconds INR 1.1 APTT 28.7 (26.0-36.0) Seconds Sodium (136-145) mEq/L Potassium (3.5-5.1) mEq/L Chloride (98-107) mEq/L Carbon Dioxide (23-29) mEq/L BUN (8-23) mg/dL Creatinine (0.60-1.20) mg/dL Est GFR ( Amer) (> 60) Est GFR (Non-Af Amer) (> 60) BUN/Creatinine Ratio (6-26) Glucose (70-105) mg/dL POC Glucose 150 H (70-99) mg/dL Calculated Osmolality (280-300) Calcium (8.6-10.3) mg/dL Total Bilirubin (0.3-1.0) mg/dL AST (13-39) Units/L ALT (7-52) Units/L Alkaline Phosphatase (34-104) Units/L Troponin I (< 0.04) ng/mL Serum Total Protein (6.4-8.9) g/dL Albumin (3.5-5.7) g/dL Globulin (2.4-3.5) g/dL Albumin/Globulin Ratio (1.1-2.2) // Range/Units 12:08 WBC (4.3-11.1) K/mcL RBC (3.82-4.97) M/mcL Hgb (11.5-15.4) g/dL Hct (35.3-44.9) % MCV (83.0-100.0) fL MCH (28.0-33.3) pg MCHC (31.6-35.5) g/dL RDW (11.5-14.5) % Plt Count (140-400) K/mcL MPV (9.4-12.4) fL Immature Gran % (0-4) % Seg Neutrophils % % Lymphocytes % % Monocytes % % Eosinophils % % Basophils % % Neutrophils # (1.6-8.9) K/mcL Lymphocytes # (0.6-4.6) K/mcL Monocytes # (0.0-1.3) K/mcL Eosinophils # (0.0-0.6) K/mcL Basophils # (0.0-0.2) K/mcL PT (9.4-12.1) Seconds INR APTT (26.0-36.0) Seconds Sodium 137 (136-145) mEq/L Potassium 4.0 (3.5-5.1) mEq/L Chloride 106 (98-107) mEq/L Carbon Dioxide 22 L (23-29) mEq/L BUN 23 (8-23) mg/dL Creatinine 1.13 (0.60-1.20) mg/dL Est GFR ( Amer) 55 L (> 60) Est GFR (Non-Af Amer) 45 L (> 60) BUN/Creatinine Ratio 20 (6-26) Glucose 147 H (70-105) mg/dL POC Glucose (70-99) mg/dL Calculated Osmolality 290 (280-300) Calcium 9.2 (8.6-10.3) mg/dL Total Bilirubin 0.6 (0.3-1.0) mg/dL AST 17 (13-39) Units/L ALT 16 (7-52) Units/L Alkaline Phosphatase 68 (34-104) Units/L Troponin I < 0.03 (< 0.04) ng/mL Serum Total Protein 6.9 (6.4-8.9) g/dL Albumin 4.1 (3.5-5.7) g/dL Globulin 2.8 (2.4-3.5) g/dL Albumin/Globulin Ratio 1.5 (1.1-2.2) - Radiology Data Radiology results reviewed: Yes I reviewed the patient's radiology results. ITS Impressions Head CT 11/29/18 11:40 IMPRESSION: No acute intracranial hemorrhage or ischemia is identified. 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 These appear stable. Acute air-fluid level seen in the right sphenoid sinus related to sinusitis. There is a focal stable appearing soft tissue nodule in the right parotid gland, measuring 10 x 7 mm in size. This is unchanged over last 6 months. This could represent a small intraparotid lymph node, though a parotid neoplasm would be in the differential such as Warthin's tumor. Taking into account the patient's age and other medical problems, could consider further workup if concerned with ultrasound imaging. D/ / Reji Avendano MD / Reji Avendano MD Interpreting Provider: Reji Avendano MD Chest X-Ray 11/29/18 11:42 IMPRESSION: Bibasilar atelectasis. No definite focal consolidation. D/ / Shweta Blount MD / Shweta Blount MD Interpreting Provider: Shweta Blount MD - EKG Data EKG attestation: Yes I reviewed and interpreted this EKG. EKG results narrative: Sinus rhythm PVC unifocal rate 64 MT 179 QRS 86 QT 434 axis LV Critical Care Time Critical Care Time: No
[2018-11-29 12:17] LABS: Basophils % 0.9 %; Eosinophils # 0.1 K/mcL (0.0-0.6); Eosinophils % 1.4 %; Hematocrit 38.7 % (35.3-44.9); Hemoglobin 13.4 g/dL (11.5-15.4); Immature Granulocytes % 1.1 % (0-4); Lymphocytes # 0.9 K/mcL (0.6-4.6); Lymphocytes % 26.4 %; Mean Corpuscular HGB Conc 34.6 g/dL (31.6-35.5); Mean Corpuscular Hemoglobin 33.1 pg (28.0-33.3); Mean Corpuscular Volume 95.6 fL (83.0-100.0); Mean Platelet Volume 8.7 fL (9.4-12.4); Monocytes # 0.2 K/mcL (0.0-1.3); Monocytes % 6.3 %; Neutrophils # 2.2 K/mcL (1.6-8.9); Platelet Count 186 K/mcL (140-400); Red Blood Count 4.05 M/mcL (3.82-4.97); Red Cell Distribution Width 13.2 % (11.5-14.5); Segmented Neutrophils % 63.9 %; White Blood Count 3.5 K/mcL (4.3-11.1)
[2018-11-29 12:24] LABS: INR 1.1; Prothrombin Time 12.7 Seconds (9.4-12.1)
[2018-11-29 12:26] LABS: Activated Partial Thrombo Time 28.7 Seconds (26.0-36.0)
[2018-11-29 12:34] LABS: Alanine Aminotransferase 16 Units/L (7-52); Albumin 4.1 g/dL (3.5-5.7); Albumin/Globulin Ratio 1.5 (1.1-2.2); Alkaline Phosphatase 68 Units/L (34-104); Aspartate Amino Transferase 17 Units/L (13-39); BUN/Creatinine Ratio 20 (6-26); Bilirubin,Total 0.6 mg/dL (0.3-1.0); Blood Urea Nitrogen 23 mg/dL (8-23); Calcium 9.2 mg/dL (8.6-10.3); Carbon Dioxide 22 mEq/L (23-29); Chloride 106 mEq/L (98-107); Globulin 2.8 g/dL (2.4-3.5); Glucose 147 mg/dL (70-105); Osmolality,Calculated 290 (280-300); Sodium 137 mEq/L (136-145); Total Protein 6.9 g/dL (6.4-8.9); eGFR For African Americans 55 (> 60); eGFR For Non-African Americans 45 (> 60)
[2018-11-29 12:35] LABS: Troponin I < 0.03 ng/mL (< 0.04)
[2018-11-29] MEDS ORDERED: diazePAM 5 MG TABLET PO ONE (12:39)
[2018-11-29] MEDS ORDERED: Ondansetron ODT 4 MG TAB.RAPDIS SL ONE (12:39)
[2018-11-29] MEDS ORDERED: Ondansetron ODT 4 MG TAB.RAPDIS SL PRN (14:14)
[2018-11-29] MEDS ORDERED: Acetaminophen 325 MG TABLET PO PRN (14:14)
[2018-11-29] MEDS ORDERED: Naloxone 0.4 MG/ML INJ IVP PRN (14:14)
[2018-11-29 14:59] LABS: Basophils # 0.1 K/mcL (0.0-0.2); Basophils % 0.8 %; Eosinophils # 0.1 K/mcL (0.0-0.6); Eosinophils % 1.1 %; Hematocrit 40.4 % (35.3-44.9); Immature Granulocytes % 0.5 % (0-4); Lymphocytes # 1.4 K/mcL (0.6-4.6); Lymphocytes % 22.6 %; Mean Corpuscular HGB Conc 34.7 g/dL (31.6-35.5); Mean Corpuscular Hemoglobin 32.9 pg (28.0-33.3); Mean Corpuscular Volume 94.8 fL (83.0-100.0); Mean Platelet Volume 8.9 fL (9.4-12.4); Monocytes # 0.5 K/mcL (0.0-1.3); Monocytes % 7.5 %; Neutrophils # 4.1 K/mcL (1.6-8.9); Platelet Count 210 K/mcL (140-400); Red Blood Count 4.26 M/mcL (3.82-4.97); Red Cell Distribution Width 13.2 % (11.5-14.5); Segmented Neutrophils % 67.5 %; White Blood Count 6.1 K/mcL (4.3-11.1)
[2018-11-29] MEDS ORDERED: Ibuprofen 400 MG TABLET PO SCH (18:00)
[2018-11-30 07:01] LABS: Eosinophils # 0.2 K/mcL (0.0-0.6); Eosinophils % 4.6 %; Hematocrit 38.4 % (35.3-44.9); Hemoglobin 13.1 g/dL (11.5-15.4); Immature Granulocytes % 0.2 % (0-4); Lymphocytes # 1.8 K/mcL (0.6-4.6); Lymphocytes % 44.5 %; Mean Corpuscular HGB Conc 34.1 g/dL (31.6-35.5); Mean Corpuscular Hemoglobin 32.9 pg (28.0-33.3); Mean Corpuscular Volume 96.5 fL (83.0-100.0); Monocytes # 0.4 K/mcL (0.0-1.3); Monocytes % 9.7 %; Neutrophils # 1.6 K/mcL (1.6-8.9); Platelet Count 187 K/mcL (140-400); Red Blood Count 3.98 M/mcL (3.82-4.97); Red Cell Distribution Width 13.2 % (11.5-14.5); White Blood Count 4.1 K/mcL (4.3-11.1)
[2018-11-30 07:09] LABS: INR 1.1; Prothrombin Time 12.4 Seconds (9.4-12.1)
[2018-11-30 07:11] LABS: Activated Partial Thrombo Time 30.1 Seconds (26.0-36.0)
[2018-11-30 07:18] LABS: Calcium 8.9 mg/dL (8.6-10.3); Potassium 4.1 mEq/L (3.5-5.1)
[2018-11-30] MEDS: Cholecalciferol (D-3) 1,000 UNIT (25MCG) TABLET PO SCH (08:44)
[2018-11-30] MEDS: Metoprolol XL (24 HR) Succ 25 MG TAB.ER.24H PO SCH (08:45)
[2018-11-30] MEDS: Aspirin 81 MG TAB.CHEW PO SCH (08:45)
--- NOTE | 2018-11-30 09:53 | Internal Med History&Physical ---
Date of Encounter: 11/30/18 Time of Encounter: 09:46 Assessment and Plan (1) Benign paroxysmal positional vertigo Current visit: Yes Status: Acute History most suggestive of BPPV. Will arrange PT and continue meclizine PRN for now. Will proceed with supportive care and monitoring Qualifiers: Laterality: unspecified laterality Qualified Code(s): H81.10 - Benign paroxysmal vertigo, unspecified ear (2) CKD (chronic kidney disease) stage 3, GFR 30-59 ml/min Current visit: Yes Status: Chronic GFR near baseline. Will monitor. (3) Hypertension Current visit: Yes Status: Chronic Well-controlled. Will continue current regimen. Qualifiers: Hypertension type: essential hypertension Qualified Code(s): I10 - Essential (primary) hypertension (4) Paroxysmal atrial fibrillation Current visit: Yes Status: Chronic Rhythm controlled. Will continue current outpatient regimen. Internal Medicine - H&P: HPI Chief complaint: vertigo Admitted From: Home Plans for Post Hospital Care: Home History of present illness: Ms. Adhikari is a 88 year old female that presented to ED with 1 day history of fairly severe episodes of vertigo that began on day of presentation. She notes that upon awakening she experienced sensation that the room was spinning upon rolling over in bed. Episodes fairly severe and last seconds to up to a minute. Episodes have been re-occurring primarily with head position changes and not present when head is stationary. She notes lesser episodes of positional vertigo over the last several years. No new meds or other changes. She is fearful that she may fall and cannot take care of herself with her current symptoms of vertigo given her advanced age and because she lives alone. She was evaluated in ED and underwent an evaluation with head CT, CXR and labs. Pt was admitted for supportive care and feels better overall this morning with less vertigo. She does continue to endorse vertigo with head position changes. Past Med Surg Social Fam HX - Past Medical History Medical history: atrial fibrillation, cancer, hyperlipidemia, hypertension, renal disease, other Additional medical history: Breast CA with lumpectomy/radiation, melanoma, diverticulosis, basal cell, melanoma Psychiatric history: no psych history - Past Surgical History Surgical History: appendectomy, cancer surgery, cholecystectomy, hysterectomy Additional surgical history: achilles tendon operation, right side lumpectomy - Social History Smoking Status: Never smoker Smokeless Tobacco Status: No Alcohol use: none Drug use: none Internal Medicine - H&P: Meds Aspirin 81 mg PO DAILY 04/13/15 [History] Dronendrone [Multaq] 400 mg PO BID 04/13/15 [History] Simvastatin [Zocor] 10 mg PO DAILY 04/13/15 [History] Cholecalciferol (D-3) [Vitamin D] 1,000 unit PO DAILY 05/14/17 [History] Metoprolol XL (24 HR) Succ [Toprol Xl] 25 mg PO DAILY #30 tab.er.24h 05/16/17 [Rx] Docusate [Colace] 100 mg PO BID capsule 06/07/18 [Rx] Allergy/AdvReac Type Severity Reaction Status Date / Time chlorpheniramine Allergy Hives Verified 01/04/16 13:20 diphenhydramine AdvReac Itching Verified 05/22/18 15:58 All Systems PM: A 10-system review of systems was performed and is negative for pertinent findings except as documented above in the HPI. - Constitutional Vitals: Temp Pulse Resp BP Pulse Ox 97 F L 90 18 121/65 93 11/30/18 07:48 11/30/18 07:48 11/30/18 07:48 11/30/18 07:48 11/30/18 07:48 Exam: Gen: Lying in bed, NAD HEENT: NC, AT Neck: Trachea midline, no mass Pulm: No respiratory distress, CTAB CV: Normal S1 and S2, RRR Abdomen: Soft, ND, NT Ext: No C/C/E Neuro: No appreciable motor/sensor deficits Skin: Warm and dry, no rash Psych: A&Ox3 Internal Med - H&P Results - Labs CBC & Chem 7: 11/30/18 06:51 11/30/18 06:51 Labs: Short CBC 11/29/18 11/29/18 11/30/18 Range/Units 12:08 14:50 06:51 WBC 3.5 L 6.1 D 4.1 L (4.3-11.1) K/mcL Hgb 13.4 14.0 13.1 (11.5-15.4) g/dL Hct 38.7 40.4 38.4 (35.3-44.9) % Plt Count 186 210 187 (140-400) K/mcL Neutrophils # 2.2 4.1 1.6 (1.6-8.9) K/mcL BMP 11/29/18 11/30/18 12:08 06:51 Sodium 137 135 L Potassium 4.0 4.1 Chloride 106 106 Carbon Dioxide 22 L 25 BUN 23 21 Creatinine 1.13 1.12 Glucose 147 H 114 H Calcium 9.2 8.9 Cardiac Enzymes 11/29/18 Range/Units 12:08 Troponin I < 0.03 (< 0.04) ng/mL Liver Function 11/29/18 Range/Units 12:08 Total Bilirubin 0.6 (0.3-1.0) mg/dL AST 17 (13-39) Units/L ALT 16 (7-52) Units/L Alkaline Phosphatase 68 (34-104) Units/L Albumin 4.1 (3.5-5.7) g/dL - Impressions ITS Impressions Head CT 11/29/18 11:40 IMPRESSION: No acute intracranial hemorrhage or ischemia is identified. 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 These appear stable. Acute air-fluid level seen in the right sphenoid sinus related to sinusitis. There is a focal stable appearing soft tissue nodule in the right parotid gland, measuring 10 x 7 mm in size. This is unchanged over last 6 months. This could represent a small intraparotid lymph node, though a parotid neoplasm would be in the differential such as Warthin's tumor. Taking into account the patient's age and other medical problems, could consider further workup if concerned with ultrasound imaging. D/ / Reji Avendano MD / Reji Avendano MD Interpreting Provider: Reji Avendano MD Chest X-Ray 11/29/18 11:42 IMPRESSION: Bibasilar atelectasis. No definite focal consolidation. D/ / Shweta Blount MD / Shweta Blount MD Interpreting Provider: Shweta Blount MD
--- NOTE | 2018-11-30 17:18 | Electrocardiograph Report ---
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
[2018-12-01 07:16] VITALS: BP 115/66
--- NOTE | 2018-12-01 09:01 | Discharge Summary ---
Date of Encounter: 12/01/18 Time of Encounter: 08:59 - Discharge Diagnosis (1) Benign paroxysmal positional vertigo Priority: Primary Status: Acute Comments: Appears resolved. Pt provided renae maneuver instructions and meclizine to be used with any future episodes. She will call her PCP if vertigo returns and she is unable to self-treat. All questions were answered. Qualifiers: Laterality: unspecified laterality Qualified Code(s): H81.10 - Benign paroxysmal vertigo, unspecified ear (2) CKD (chronic kidney disease) stage 3, GFR 30-59 ml/min Priority: Secondary Status: Chronic Comments: GFR has been stable. Will continue current regimen. (3) Hypertension Priority: Secondary Status: Chronic Comments: Well-controlled. Will continue home regimen. Qualifiers: Hypertension type: essential hypertension Qualified Code(s): I10 - Essential (primary) hypertension (4) Paroxysmal atrial fibrillation Priority: Secondary Status: Chronic Comments: Stable. Will continue home regimen per PCP. Hospital course: Ms. Adhikari is a 88 year old female that presented to ED with 1 day history of fairly severe episodes of positional vertigo that began on day of presentation. She was evaluated in ED and underwent an evaluation with head CT, CXR and labs. Episoded felt to be most consistent with BPPV. Pt was admitted for supportive care and symptomatically improved. She was seen by physical therapy. She was deemed safe to return to home. She was given instructions for Renae maneuvers and meclizine to use with any future vertiginous episodes. She will contact her PCP for a referral for vestibular therapy should these episodes re-occur and persist despite self-directed treatment. Discharge discussed with: patient - Time Spent with Patient Total time spent providing and/or coordinating discharge services: Time spent: Less than 30 minutes - Discharge Medications Prescriptions: New Meclizine HCl [Verticalm] 25 mg PO TID PRN #20 tablet PRN Reason: Vertigo Continued Simvastatin [Zocor] 10 mg PO DAILY Aspirin 81 mg PO DAILY Dronendrone [Multaq] 400 mg PO BID Docusate [Colace] 100 mg PO BID capsule Cholecalciferol (D-3) [Vitamin D] 1,000 unit PO DAILY Metoprolol XL (24 HR) Succ [Toprol Xl] 25 mg PO DAILY #30 tab.er.24h Home Medications: Aspirin 81 mg PO DAILY 04/13/15 [History] Dronendrone [Multaq] 400 mg PO BID 04/13/15 [History] Simvastatin [Zocor] 10 mg PO DAILY 04/13/15 [History] Cholecalciferol (D-3) [Vitamin D] 1,000 unit PO DAILY 05/14/17 [History] Metoprolol XL (24 HR) Succ [Toprol Xl] 25 mg PO DAILY #30 tab.er.24h 05/16/17 [Rx] Docusate [Colace] 100 mg PO BID capsule 06/07/18 [Rx] Meclizine HCl [Verticalm] 25 mg PO TID PRN #20 tablet 12/01/18 [Rx] Allergies/Adverse Reactions: Allergy/AdvReac Type Severity Reaction Status Date / Time chlorpheniramine Allergy Hives Verified 01/04/16 13:20 diphenhydramine AdvReac Itching Verified 05/22/18 15:58 Date of admission: 11/29/18 14:07 Primary care physician: Daren Cox DO Consults: 11/30/18 09:58 Consult to Physical Therapy [CONS] Routine Comment: Evaluate, develop and implement POC Reason for Consult: gait evaluation, generalize weakness, immobility Does patient have active BEDREST order?: No Is patient medically & hemodynamically stable?: Yes Discharging clinician: Rico Guerrero Anticipated date of discharge: 12/01/18 - Constitutional Vitals: Temp Pulse Resp BP Pulse Ox 97.9 F 59 18 115/66 90 12/01/18 07:13 12/01/18 07:13 12/01/18 07:13 12/01/18 07:13 12/01/18 07:13 Exam: Gen: Lying in bed, NAD HEENT: NC, AT Neck: Trachea midline, no mass Pulm: No respiratory distress, CTAB CV: Normal S1 and S2, no JVD Abdomen: Soft, ND, NT Ext: No C/C/E Neuro: No appreciable motor/sensor deficits Skin: Warm and dry, no rash Psych: A&Ox3 - Patient Status Disposition: Home, Self-Care Condition: Good Functional capacity at discharge: uses cane/walker Overall status at discharge: patient is back to baseline - Discharge Instructions Instructions: Benign Paroxysmal Positional Vertigo (DC), Benign Paroxysmal Positional Vertigo, [employer] Glazer (GEN) Follow Up With: Daren Cox, [Primary Care Provider] - 1 week - Diet and Activity Activity: as per physical therapy Diet: advance to your usual diet
[2018-12-01] MEDS: Cholecalciferol (D-3) 1,000 UNIT (25MCG) TABLET PO SCH (09:02)
[2018-12-01] MEDS: Metoprolol XL (24 HR) Succ 25 MG TAB.ER.24H PO SCH (09:03)
[2018-12-01] MEDS: Aspirin 81 MG TAB.CHEW PO SCH (09:03)
== END 2018-12-01 11:07 | disposition home or self-care (01) ==
LOC: INPPIK 11:23 → EMEROOPIK 11:23 → INPPIK 14:36
PROVIDERS: ADMIT Internal Medicine; ATTEND Internal Medicine